=== PATIENT | male | born 1945 | race Caucasian/White ===

== ENCOUNTER → 2016-10-27 | Outpatient (CLI) | payer MEDICARE, OTHER | LOC: LAB.O 14:20 | PROVIDERS: ATTEND Psychiatry & Neurology Neurology | DX: Z01.812 Encounter for preprocedural laboratory examination (principal) ==

== ENCOUNTER → 2017-06-30 | Outpatient (CLI) | payer MEDICARE, OTHER ==
--- NOTE | 2017-06-30 16:10 | MRI ---
EXAM DESCRIPTION: Cervical Spine CLINICAL HISTORY: 72 years,Male,CHRONIC TENSION-TYPE HEADACHE COMPARISON: None TECHNIQUE: MRI performed multiple sequences of the cervical spine. FINDINGS: The signal in the cervical vertebral bodies unremarkable except for some mild edema in the facet on the right at C5 The cervical cord is normal signal and morphology. Surrounding soft tissues unremarkable. Dense and arch of C1: Mild hypertrophy C2-3: There is no significant loss of disc height. There is minimal central focal disc bulge. Facets are mild hypertrophy. No neural foraminal stenosis. No spinal canal stenosis. C3-4: There is no significant loss of disc height. There is minimal broad-based disc bulge. Facets are mildly moderate hypertrophy. Mild to moderate left neural foraminal stenosis due to uncovertebral osteophyte and facet hypertrophy. No spinal canal stenosis. C4-5: There is no significant loss of disc height. There is mild annular disc bulge. Facets are severe right facet hypertrophy mild left. Moderate right neural foraminal stenosis. No spinal canal stenosis. C5-6: There is severe loss of disc height. There is mild to moderate disc ossify complex of a moderate left uncal vertebral joint osteophyte. Facets are moderate bilateral hypertrophy. Moderate to severe left neural foraminal stenosis moderate right. No spinal canal stenosis. C6-7: There is moderate loss of disc height. There is moderate broad-based disc ossify complex with left uncovertebral osteophyte. Facets are mild to moderate hypertrophy. Moderate to severe left and mild to moderate right neural foraminal stenosis. No spinal canal stenosis. C7-T1:There is no significant loss of disc height. There is no disc bulge. Facets are mildly moderate hypertrophy. No neural foraminal stenosis. No spinal canal stenosis. IMPRESSION: Multiple levels of neural foraminal stenosis as described above mostly at C4-5 through C6-7 due to facet arthropathy and uncovertebral joint osteophytes. No spinal canal stenosis. Electronically signed by: Jose Luis Mcmillan MD 06/30/2017 4:09 PM CDT
== END | disposition home or self-care (01) ==
LOC: MRI 10:13
PROVIDERS: ATTEND Psychiatry & Neurology Neurology
DX: G44.221 Chronic tension-type headache, intractable (principal); M48.02 Spinal stenosis, cervical region

== ENCOUNTER → 2017-07-12 | Outpatient (CLI) | payer MEDICARE, OTHER | END | disposition home or self-care (01) | LOC: GMAH 16:24 | PROVIDERS: ATTEND Family Medicine | DX: R31.0 Gross hematuria (principal); Z01.810 Encounter for preprocedural cardiovascular examination ==

== ENCOUNTER → 2018-03-02 | Outpatient (CLI) | payer MEDICARE, OTHER ==
--- NOTE | 2018-03-03 09:54 | MRI ---
EXAM DESCRIPTION: Lumbar Spine w/o Contrast MRI. CLINICAL HISTORY: INTERVERTEBRAL DISC DISORDER COMPARISON: MRI lumbar spine 05/27/2016. TECHNIQUE: Multiplanar, multiple standard sequences, non contrast MRI, lumbar spine. FINDINGS: L5-S1: Grade 1 anterolisthesis. Disc desiccation and disc space preserved. Posterior broad-based 4 mm disc bulge. Disc protrusion into the left foramen impressing on the exiting left L5 root against the bony syed of the foramen. Moderate narrowing of the right foramen. Anomalous morphology of the left facet and lamina. 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 Marrow edema in the right L5 pedicle. L4-5: Disc desiccation and trace anterolisthesis. Disc space preserved. Tiny posterior midline disc bulge. Posterior flavum ligament hypertrophy and arthrosis more right than left. Mild canal narrowing. Bilateral mild foraminal narrowing. L3-4: Minimal disc desiccation with disc space preserved. Posterior elements are unremarkable. Canal and foramina are patent. L2-3: Normal signal in the disc and disc space preserved. No bulging. Minimal hypertrophy of the posterior elements abutting the thecal sac. Facets are unremarkable. Canal and foramina are patent. L1-2: Normal signal in the disc and disc space preserved. No bulging. Posterior elements unremarkable. Canal and foramina are patent. T12-L1: Normal signal in the disc and disc space preserved. No bulging. Posterior elements unremarkable. Canal and foramina are patent. . Normal curvature of the spine. Paravertebral soft tissues are unremarkable. Normal marrow signal in the remaining vertebral bodies and the posterior elements. Vertebral bodies are not compressed at any level. IMPRESSION: 1. Grade 1 anterolisthesis of L5-S1 with disc desiccation. Minimal posterior bulging with moderate congenital bony canal narrowing. Disc protrusion into the left foramen impinging the left L5 nerve root which has progressed since the prior study. Correlate for left L5 radiculopathy. 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 Stable since the prior study. Marrow edema in the right L5 pedicle is stable since the prior study. 2. L4-5 disc desiccation and tiny posterior bulge. Bilateral facet arthrosis more on the right. Stable since the prior study. Electronically signed by: Sheldon Hernandez MD 03/03/2018 9:53 AM CDT
== END ==
LOC: MRI 11:00
PROVIDERS: ATTEND Psychiatry & Neurology Neurology
DX: M51.16 Intervertebral disc disorders with radiculopathy, lumbar region (principal); M43.17 Spondylolisthesis, lumbosacral region

== ENCOUNTER → 2018-04-17 | Outpatient (CLI) | payer MEDICARE, OTHER ==
--- NOTE | 2018-04-17 16:09 | RAD ---
EXAM DESCRIPTION: Cervical Spine,Flex/Ext CLINICAL HISTORY: CERVICALGIA COMPARISON: None. TECHNIQUE: Flexion and extension views of the cervical spine FINDINGS: Anterior plate and interbody fusion is seen at the C5-6 level. Minimal anterior subluxation of C4 on C5 is observed. The disc spaces are maintained. No soft tissue swelling is seen. IMPRESSION: ACDF is observed at the C5-6 level. There is minimal anterior subluxation of C4 on C5 in flexion. Electronically signed by: Jose Luis Vergara MD 04/17/2018 4:08 PM CDT
--- NOTE | 2018-04-17 16:11 | RAD ---
EXAM DESCRIPTION: Lumbar Spine,Flex/Ext CLINICAL HISTORY: SPONDYLOSIS OR RADICULOPATHY LUMBAR REGION COMPARISON: None. TECHNIQUE: Neutral flexion and extension views of the lumbar spine FINDINGS: Mild anterior subluxation of L5 on S1 is observed. Facet joint arthritis is observed at the L4-5 and L5-S1 levels. The disc spaces are relatively well-maintained. The anterior subluxation of L5 on S1 is fixed with flexion and extension. IMPRESSION: Minimal anterior subluxation of L5 on S1 is observed. It remains unchanged through flexion and extension. Electronically signed by: Jose Luis Vergara MD 04/17/2018 4:10 PM CDT
== END ==
LOC: RAD 11:44
PROVIDERS: ATTEND Neurological Surgery
DX: M47.816 Spondylosis without myelopathy or radiculopathy, lumbar region (principal); M54.16 Radiculopathy, lumbar region; M54.2 Cervicalgia

== ENCOUNTER → 2018-11-07 | Outpatient (CLI) | payer MEDICARE, OTHER ==
--- NOTE | 2018-11-07 19:16 | MRI ---
EXAM DESCRIPTION: Lumbar Spine w/o Contrast : Magnetic Resonance Imaging. CLINICAL HISTORY: INTERVERTEBRAL DISC DISORDER WITH RADICULOPATHY COMPARISON: MRI scan lumbar spine without contrast 03/02/2018. TECHNIQUE: Multiplanar, multiple standard sequences, non contrast MRI, lumbar spine. FINDINGS: L5-S1: Disc desiccation with disc space preserved. Tiny posterior bulge. Grade 1 3 mm anterolisthesis. Hypertrophy of the flavum ligaments. Left facet arthrosis. Mild to moderate canal narrowing. Deformity of the bilateral pars interarticularis, with edema and suggestion of bone loss in the right L5 pars and soft tissue mass. Loss of bone substance in the superior and medial right L5 pedicle with edema in the preserved marrow. Also destruction of the right superior L5 facet, and possible involvement of the right inferior L4 facet. Soft tissue mass is encroaching on the posterior soft tissues and also extending into the bony canal impressing on the right flavum ligaments and the thecal sac. Moderate to severe narrowing of the left L5-S1 foramina, more than right foraminal narrowing. L4-5: Minimal disc space loss and minimal disc desiccation. No posterior bulge. Minimal flavum ligament hypertrophy and trace anterolisthesis. Mild canal narrowing. Disc space preserved with no significant bulging. Mild to moderate narrowing of the right foramen secondary to previously described soft tissue mass. Left foramen is patent. L3-4: Disc space preserved with minimal disc desiccation no significant bulging. Minimal flavum ligament hypertrophy. Facets are negative. Mild canal narrowing. Bilateral mild foraminal narrowing. L2-3: Normal signal in the disc with disc space preserved. Minimal anterior bulging. Mild flavum ligament hypertrophy with mild canal narrowing. Facets are negative. Canal and foramina are patent. Facet L1-2: Normal signal in the disc with disc space preserved. Posterior elements unremarkable. Canal and foramina are patent. T12-L1: Normal signal in the disc with disc space preserved with no bulging. Posterior elements are unremarkable. Canal and foramina are patent. Conus terminates at this level. No significant scoliosis. Paravertebral soft tissues abnormalities as previously described. No abnormality superior to the L4-5 level.. Otherwise normal marrow signal in the remaining vertebral bodies and the posterior elements. Vertebral bodies are not compressed at any level. IMPRESSION: 1. Bone destruction of the right superior L5 facet extending from the prior region of spondylolysis, and extending to the right L4-5 facet joint. This process may be crossing the right L4-5 with involvement of the right inferior L4 facet. Marrow edema in the adjacent bony structures. Possible bone loss superior and medial right L5 pedicle. Soft tissue mass expanding laterally and posteriorly into the tissues and medially into the spinal canal abutting the thecal sac. This is bone destruction may represent osteomyelitis from infectious etiology, or inflammatory response in the bony tissues. Narrowing of the right L4-[address]amen[address] Consider follow-up CT scan which is more sensitive to evaluate the bony structures or MRI with gadolinium IV contrast. Oblique lumbar spine radiographs may also be helpful. 2. Grade 1 L5-S1 heaven listhesis 3 mm with desiccated disc and minimal bulge. Moderate to severe left foraminal narrowing. Correlate for left L5 radiculopathy. 3. Trace anterolisthesis L4-5. Mild canal narrowing and left foramen patent. Electronically signed by: Sheldon Hernandez MD 11/07/2018 7:15 PM [facility]
== END ==
LOC: MRI 10:00
PROVIDERS: ATTEND Psychiatry & Neurology Neurology
DX: M51.16 Intervertebral disc disorders with radiculopathy, lumbar region (principal); M51.36 Other intervertebral disc degeneration, lumbar region

== ENCOUNTER → 2018-11-23 | Outpatient (CLI) | payer MEDICARE, OTHER | LOC: GMAH 14:27 | PROVIDERS: ATTEND Family Medicine | DX: E78.2 Mixed hyperlipidemia (principal); Z12.5 Encounter for screening for malignant neoplasm of prostate | CPT/HCPCS: 84443; 84550; G0103 ==

== ENCOUNTER → 2018-11-30 | Outpatient (CLI) | payer MEDICARE, OTHER ==
--- NOTE | 2018-12-01 12:13 | MRI ---
EXAM DESCRIPTION: Lumbar Spine w/wo Contrast: Magnetic Resonance Imaging. CLINICAL HISTORY: RADICULOPATHY LUMBAR REGION COMPARISON: MRI scan lumbar spine 11/07/2018. TECHNIQUE: Multiplanar, MRI, multiple standard sequences, without and with standard dose Gadolinium IV contrast, lumbar spine. No adverse reactions. FINDINGS: Again noted is soft tissue mass which appears to have completely obliterated the right L4-5 facet joint in the adjacent pars on the right. Also involving the posterior medial right L5 pedicle, and base of the right L5 lamina. Soft tissue mass enhancement and soft tissue edema enhancement. Also mass effect on the right posterior canal and the right posterior thecal sac. Small sequestered bone fragment still visualized on the axial post gadolinium sequence, image 13. Decreased density of the fat and definition of the thecal sac, inferior facet joint, and the descending right L5 nerve in the right subarticular recess with enhancement. Enhancement is also noted in the soft tissues possibly within a tract extending through the right paraspinal muscle behind the septic joint and into the right para midline fatty tissues. No abnormal enhancement in the discs or disc spaces. Minimal inflammatory changes in the contralateral left L4-5 facet joint. No abnormal enhancement in the remaining posterior elements or vertebral bodies. IMPRESSION: Destruction of the right L4-5 facet joint and adjacent osseous structures shows minimal progression since the prior study. 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 Extension into the adjacent soft tissues. Possible sinus tract development in the right paraspinal muscle near the midline and fat posterior to the muscle. Mass effect on the right posterior lateral thecal sac and extension of infection into the right subarticular recess around the descending right L5 nerve root. CRITICAL COMMUNICATION: The critical value was discussed directly by phone with Dr. Markus Shannon, at approximately 1142 hours, on December 01, 2018. Electronically signed by: Sheldon Hernandez MD 12/01/2018 12:11 PM [facility]
== END ==
LOC: MRI 08:24
PROVIDERS: ATTEND Neurological Surgery
DX: M51.16 Intervertebral disc disorders with radiculopathy, lumbar region (principal)

== ENCOUNTER → 2018-12-19 | Outpatient (CLI) | payer MEDICARE, OTHER | LOC: GMAH 18:16 | PROVIDERS: ATTEND Family Medicine | DX: E78.2 Mixed hyperlipidemia (principal) ==

== ENCOUNTER → 2019-01-29 | Outpatient (CLI) | payer MEDICARE, OTHER ==
--- NOTE | 2019-01-29 12:46 | MRI ---
EXAM DESCRIPTION: Lumbar Spine w/wo Contrast . Magnetic resonance imaging. CLINICAL HISTORY: SPONDYLOSIS OF THE LUMBAR REGION COMPARISON: None Available. TECHNIQUE: Multiplanar, MRI, multiple standard sequences, without and with 20 mL Gadolinium IV contrast, lumbar spine. No adverse reactions. FINDINGS: Again noted is a enhancing ill-defined partially fluid density process involving the right pedicle of L5, the anterior superior-medial facets of the right L5-S1 joint, and the inferior aspect of the right L4 superior facet. This process also involves the right side of the spinal canal and ligamentum flavum with minimal mass effect and enhancement in the left aspect of the canal. There is also enhancing material around the descending right S1 nerve in the right subarticular recess. Sclerosis of the posterior right L5 lamina abutting the process consistent with a surgical margin and prior partial laminectomy. No enhancement or change in caliber of the descending right S1 nerve. No abnormal enhancement of the thecal sac. The approximate dimensions of this abnormal tissue in the axial plane is 2.2 x 1.7 cm, and 2 cm in the axis parallel to the L5 vertebral body. This is stable compared to the prior study. The low intensity, 4 mm diameter object seen within this enhancing tissue on the prior study is no longer visualized. Enhancement is approximately the same degree as on the prior study; minimal enhancement again seen on the prior surgical approach, but this has decreased since the prior study. Degree of canal narrowing is unchanged. Stable caliber of the right and left L4-5 and L5-S1 foramina is unchanged. Bilateral borderline stenosis of the L5-S1 foramina more left than right again noted. Vertebral bodies are not compressed at any level. Normal marrow signal in the remaining vertebral bodies and the posterior elements. No new abnormal Contrast enhancement. Paravertebral soft tissues otherwise unremarkable.Perivertebral contrast enhancement otherwise normal. IMPRESSION: 1. Stable inflammatory process in the postsurgical site which includes the right L5-S1 facet, right L5 pedicle, right L5 lamina, inferior margin of the right L4-5 facet, right subarticular recess at L5-S1, and right spinal canal. Minimal mass effect on the right thecal sac and abutting this process. No abnormal enhancement in the thecal sac or the right descending S1 nerve. Less enhancement of the right paraspinal surgical incision site. 2. No new areas of inflammatory edema or enhancement in the spine or spinal canal Electronically signed by: Sheldon Hernandez MD 01/29/2019 12:43 PM CDT
--- NOTE | 2019-01-29 20:32 | RAD ---
EXAM DESCRIPTION: Lumbar Spine,Flex/Ext: CR/DR/x-ray. CLINICAL HISTORY: 73 years Male SPONDYLOSIS COMPARISON: Lumbar TECHNIQUE: 3 Views lumbar spine. Flexion and extension lateral and Lateral FINDINGS: Lumbar type vertebra: 5 Transitional vertebrae: None Disc spaces: Minimal narrowing L5-S1. Facet joints: Arthrosis bilaterally L5-S1, L3-4, and L4-5 Compression deformities: None. Bone Density: Minimally reduced. Alignment: Grade 1 anterolisthesis at L5-S1: 2.0 mm with flexion 1.5 mm neutral and 1 mm extension. Limited below the L4 level flexion and extension. IMPRESSION: Grade 1 anterolisthesis at L5-S1 increases 1 mm from extension to flexion Electronically signed by: Sheldon Hernandez MD 01/29/2019 8:28 PM CDT
== END ==
LOC: MRI 09:00
PROVIDERS: ATTEND Neurological Surgery
DX: M47.896 Other spondylosis, lumbar region (principal); M43.16 Spondylolisthesis, lumbar region; Z98.890 Other specified postprocedural states

== ENCOUNTER → 2020-02-12 | Outpatient (CLI) | payer MEDICARE, OTHER ==
--- NOTE | 2020-02-12 15:51 | MRI ---
EXAM DESCRIPTION: Lower Extremity Joint,Right CLINICAL HISTORY: PAIN IN RIGHT HIP, no known injury. COMPARISON: None Available. TECHNIQUE: MRI of the right hip is performed according to our usual protocol with multiplanar multi sequence imaging. No intravenous contrast. FINDINGS: Bones and joints: No focal bone marrow contusion or fracture. No evidence of avascular necrosis of the femoral heads. Mild right hip osteoarthrosis with small acetabular roof and inferior humeral head marginal osteophyte formation. Mild grade grade 1-2 cartilage thinning. No full-thickness cartilage defect or subchondral bone marrow edema. No joint effusion. Labrum: A coapted tear of the right anterior labrum extends from the articular surface into the chondral labral junction (series 701 image 8-10). Additional degenerative fraying of the superior labrum free edge. Partially imaged left hip also demonstrate degenerative labral tearing. Tendons and ligaments: Low-grade interstitial fissuring involving the gluteus minimus middle and posterior insertional fibers. The gluteus medius tendon is intact. The proximal common hamstring tendons are intact. Neural vasculature: The partially visualized vasculature and sciatic nerve are intact. Soft tissues: No focal muscle strain. No significant trochanteric or iliopsoas bursitis. Prostatic brachytherapy beads are present. IMPRESSION: 1. Right anterior acetabular labrum coapted tear extending into the contralateral labral junction. Background mild degenerative fraying of the labral free edge. 2. Mild right hip osteoarthrosis without full-thickness cartilage loss. No hip joint effusion. 3. Gluteus minimus tendon mild interstitial fissuring. No high-grade tendon tear or retraction. Electronically signed by: Ra Alegria DO 02/12/2020 3:50 PM CDT
== END ==
LOC: MRI 14:00
PROVIDERS: ATTEND Psychiatry & Neurology Neurology
DX: S76.011A Strain of muscle, fascia and tendon of right hip, initial encounter (principal); M16.11 Unilateral primary osteoarthritis, right hip

== ENCOUNTER → 2020-02-13 | Outpatient (CLI) | payer MEDICARE, OTHER ==
--- NOTE | 2020-02-14 12:01 | MRI ---
EXAM DESCRIPTION: Lumbar Spine w/o Contrast : Magnetic Resonance Imaging. CLINICAL HISTORY: INTERVERTEBRAL DISC DISORDERS W RADICULOPATHY LUMBAR REGION COMPARISON: MRI scan lumbar spine without contrast January 2019. TECHNIQUE: Multiplanar, multiple standard sequences, non contrast MRI, lumbar spine. FINDINGS: L5-S1: The disc is well visualized on axial T2 series 501, image 3. No interval change in partial L5 laminectomy and adjacent soft tissue surgical changes. Grade 1 anterolisthesis 5 mm is stable. Disc desiccation and minimal disc space loss with minimal bulge in the midline into the left of midline. Mild canal narrowing. Minimal degenerative hypertrophy of the facet joints and left posterior flavum ligament (canal elements. Moderate to severe left foraminal narrowing due to disc spur complex, no interval change. Mild to moderate narrowing right foramen. L4-L5: Disc desiccation and minimal posterior disc space loss. Postsurgical changes in the inferior right lamina. Degenerative hypertrophy of the canal elements more on the left. Canal patent. Mild narrowing of the bilateral foramina more right than left. No interval change. L3-L4: Normal signal in the disc with disc space minimally decreased but no disc bulging. Minimal degenerative hypertrophy of the canal elements. Canal and bilateral foramina are patent. Stable since the prior study. L2-L3: Normal signal in the disc with disc space preserved and no posterior bulging. Minimal degenerative hypertrophy of the canal elements. Canal and foramina are patent. L1-L2: Normal signal in the disc with disc space maintained. Canal elements unremarkable. Canal and foramina are patent. T12-L1: Same as L1-L2. Conus terminates at this level. No scoliosis. Paravertebral soft tissues medial cortical cyst upper pole right kidney. Lipoma in the left hemidiaphragmatic jolie. Minimal paraspinal muscle atrophy.. Distal cord normal signal and caliber. Otherwise normal marrow signal in the remaining vertebral bodies and the posterior elements. Vertebral bodies are not compressed at any level. IMPRESSION: 1. Postsurgical changes at L5-S1 are stable. No interval change in grade 1 anterolisthesis. Stable moderate to severe left foraminal narrowing due to disc spur complex. Correlate for left L5 radiculopathy. 2. Disc desiccation at other levels, with multiple levels of degenerative hypertrophy in the posterior flavum ligaments and facet joints (canal elements). Please see above for specific details. Electronically signed by: Sheldon Hernandez MD 02/14/2020 12:00 PM CDT
== END ==
LOC: MRI 10:00
PROVIDERS: ATTEND Psychiatry & Neurology Neurology
DX: M51.16 Intervertebral disc disorders with radiculopathy, lumbar region (principal); Z98.890 Other specified postprocedural states; M43.16 Spondylolisthesis, lumbar region; M25.78 Osteophyte, vertebrae; M51.36 Other intervertebral disc degeneration, lumbar region; M24.28 Disorder of ligament, vertebrae; M46.96 Unspecified inflammatory spondylopathy, lumbar region

== ENCOUNTER 2020-02-25 05:34 | Day surgery (SDC) | payer MEDICARE, OTHER ==
[2020-02-25] MEDS ORDERED: TROP1%/CYCLOPEN 1%/PHENYL 2.5% DROPS ONE ×2 (05:47→08:53)
[2020-02-25] MEDS ORDERED: PROPARACAINE 0.5% OPHTH SOL 15 ML BTTL ONE ×2 (05:47→08:53)
[2020-02-25] MEDS ORDERED: MOXIFLOXACIN HCL (OPHTH) 1 DROP DROPS ONE (05:47)
[2020-02-25] MEDS ORDERED: MIDAZOLAM INJ 2 MG/2 ML VIAL ONE ×2 (08:56→09:08)
[2020-02-25] MEDS ORDERED: PROPARACAINE 0.5% OPHTH SOL 15 ML BTTL LEFT_EYE ONE (09:05)
[2020-02-25] MEDS ORDERED: LIDOCAINE 1% MPF 2 ML VIAL INJ ONE (09:10)
[2020-02-25] MEDS ORDERED: TOBRAMYCIN SULF 0.3 % OPHT SOL 1 DROP LEFT_EYE ONE ×2 (09:14→09:24)
[2020-02-25] MEDS ORDERED: MOXIFLOXACIN HCL (OPHTH) 1 DROP DROPS LEFT_EYE ONE ×2 (09:14→09:24)
[2020-02-25] MEDS ORDERED: DEXAMETHASONE 0.1% OPHTH SOL 1 DROP LEFT_EYE ONE ×2 (09:14→09:24)
[2020-02-25] MEDS ORDERED: BRIMONIDINE 0.2% OPHTH DROPS LEFT_EYE ONE ×2 (09:15→09:24)
== END 2020-02-25 10:00 | disposition home or self-care (01) ==
LOC: AMB 05:34
PROVIDERS: ATTEND Ophthalmology
DX: H25.12 Age-related nuclear cataract, left eye (principal); Z79.899 Other long term (current) drug therapy
CPT/HCPCS: 00142; 66984; J2250

== ENCOUNTER 2020-03-10 05:33 | Day surgery (SDC) | payer MEDICARE, OTHER ==
[2020-03-10] MEDS ORDERED: PROPARACAINE 0.5% OPHTH SOL 15 ML BTTL ONE (05:52)
[2020-03-10] MEDS ORDERED: MOXIFLOXACIN HCL (OPHTH) 1 DROP DROPS ONE (05:52)
[2020-03-10] MEDS ORDERED: TROP1%/CYCLOPEN 1%/PHENYL 2.5% DROPS ONE (05:52)
[2020-03-10] MEDS ORDERED: MIDAZOLAM INJ 2 MG/2 ML VIAL ONE (07:06)
[2020-03-10] MEDS ORDERED: PROPARACAINE 0.5% OPHTH SOL 15 ML BTTL RIGHT_EYE ONE (08:43)
[2020-03-10] MEDS ORDERED: fentaNYL CITRATE INJ 50 MCG/ML 2 ML AMP ONE (08:47)
[2020-03-10] MEDS ORDERED: DEXAMETHASONE 0.1% OPHTH SOL 1 DROP RIGHT_EYE ONE ×2 (08:49→09:01)
[2020-03-10] MEDS ORDERED: LIDOCAINE 1% MPF 2 ML VIAL INJ ONE (08:49)
[2020-03-10] MEDS ORDERED: MOXIFLOXACIN HCL (OPHTH) 1 DROP DROPS RIGHT_EYE ONE ×2 (08:49→09:01)
[2020-03-10] MEDS ORDERED: TOBRAMYCIN SULF 0.3 % OPHT SOL 1 DROP RIGHT_EYE ONE ×2 (08:50→09:01)
[2020-03-10] MEDS ORDERED: BRIMONIDINE 0.2% OPHTH DROPS RIGHT_EYE ONE ×2 (08:50→09:01)
== END 2020-03-10 09:40 | disposition home or self-care (01) ==
LOC: AMB 05:33
PROVIDERS: ATTEND Ophthalmology
DX: H25.11 Age-related nuclear cataract, right eye (principal); I10 Essential (primary) hypertension; J44.9 Chronic obstructive pulmonary disease, unspecified; Z79.899 Other long term (current) drug therapy
CPT/HCPCS: 00142; 66984; J2250; J3010

== ENCOUNTER → 2020-03-20 | Outpatient (CLI) | payer MEDICARE, OTHER ==
--- NOTE | 2020-03-20 09:17 | RAD ---
EXAM DESCRIPTION: Pelvis CLINICAL HISTORY: 74 years Male, PAIN IN RIGHT HIP COMPARISON: None. TECHNIQUE: AP radiograph of the pelvis was performed. FINDINGS: The pelvic ring appears grossly intact on this single AP radiograph. No acute fracture or dislocation. Bilateral sacroiliac joints appear normal. Moderate degenerative changes are noted in bilateral hip joints. Brachytherapy beads are noted.The visualized lumbo-sacral spine demonstrates mild degenerative changes. IMPRESSION: Single AP radiograph of the pelvis demonstrates grossly intact pelvic ring. Moderate degenerative changes are noted in bilateral hip joints. Electronically signed by: Karissa Corss MD 03/20/2020 9:15 AM CDT
--- NOTE | 2020-03-20 09:17 | RAD ---
EXAM DESCRIPTION: Hip,Right 2 Views CLINICAL HISTORY: 74 years Male, PAIN IN RIGHT HIP COMPARISON: None available. FINDINGS: The visualized bones are well-mineralized.No acute fracture or dislocation. Moderate right hip osteoarthritis. The soft tissues appear grossly unremarkable. IMPRESSION: Moderate right hip osteoarthritis. Electronically signed by: Karissa Cross MD 03/20/2020 9:16 AM CDT
== END ==
LOC: RAD 08:36
PROVIDERS: ATTEND Orthopaedic Surgery
DX: M16.0 Bilateral primary osteoarthritis of hip (principal)

== ENCOUNTER → 2020-11-12 | Outpatient (CLI) | payer MEDICARE, OTHER | LOC: GMA MATASK 10:51 | PROVIDERS: ATTEND Family Medicine | DX: Z12.5 Encounter for screening for malignant neoplasm of prostate (principal); E78.2 Mixed hyperlipidemia; R73.9 Hyperglycemia, unspecified; E03.9 Hypothyroidism, unspecified | CPT/HCPCS: 84443; 84550; G0103 ==

== ENCOUNTER → 2020-12-02 | Outpatient (CLI) | payer MEDICARE, OTHER | LOC: LAB.O 13:41 | PROVIDERS: ATTEND Urology | DX: Z01.812 Encounter for preprocedural laboratory examination (principal); Z01.810 Encounter for preprocedural cardiovascular examination; N40.1 Benign prostatic hyperplasia with lower urinary tract symptoms ==